=== PATIENT | male | born 1955 | race Caucasian/White ===

== ENCOUNTER 2024-02-12 19:27 | Inpatient (IN) | payer MEDICARE, SELFPAY ==
[2024-02-12] VITALS (13 sets, daily range): BP systolic 92–143; BP diastolic 60–97; BMI 33.9; BMI 33.3
--- NOTE | 2024-02-12 14:10 | ED.GENMED ---
ED Provider Triage
-
Patient seen by provider in Triage?: Seen in Triage
68-year-old male on Eliquis presents in referral from urgent care for evaluation of shortness of breath. He was found to be tachycardic and tachypneic with low oxygen readings at the urgent care. He looks pale in triage. He is tachycardic here.
Check labs including CBC CMP BNP, COVID and flu test. EKG pending. Order chest x-ray and type and screen
Patient seen by
History of Present Illness
General
Chief Complaint: Breathing Problem
Source: patient
Exam Limitations: none
Time Seen by Provider: 02/12/24 17:20
History of Present Illness
History of Present Illness:
68-year-old male history of coronary artery disease with stents [facility] presents with fatigue cough shortness of breath worsening over several days. He is here visiting from [place]. He is never been to this hospital before. He notes chest
tightness but denies any chest discomfort otherwise. No leg swelling. Denies any dark or tarry stools. No known sick contacts. No other complaints
Phy Exam
Physical Exam
Physical Exam:
General: Well-developed male with increased work of breathing
HEENT: Normocephalic atraumatic
Heart: Tachycardic but regular
Lungs: Diffusely wheezing no obvious rales
Abdomen soft nontender
Skin is pale but dry
Extremities: No cyanosis or edema
Scores
Heart Failure Risk
Heart Failure Risk Score: Not Applicable
Sepsis
Sepsis Screening
Sepsis Assessment: Sepsis
Sepsis Screen
Sepsis Screen: Sepsis
Date: 02/12/24
Time: 17:42
Course
Orders/Labs/Results
Orders:
Orders
02/12/24 14:08
CR Chest - 2 Views Urgent
Comment:
Reason For Exam: sob
02/12/24 14:11
Electrocardiogram (*1) Urgent
Reason for Study: Palpitations
EKG- Treatment ONCE
02/12/24 14:47
Type+Screen Urgent
COVID-19 Antigen Urgent
Source: Nasal Swab
Complete Blood Count/With Diff Urgent
Comprehensive Metabolic Panel Urgent
Manual Differential Urgent
NT-proBNP Urgent
Influenza A+B Rapid Molecular Urgent
SARAH Source: Nasal Swab
Specimen Description:
02/12/24 15:27
ABO2 Urgent
BBK Wristband Number:
Associate notified that ABO2 has been ordered: [id number]
Date: 02/12/24
Time: 14:58
Warehouse Delivery Driver ID: [id number]
02/12/24 17:27
Ipratropium/Albuterol Sulfate [Duoneb] 3 ml INH R NOW ONE
02/12/24 17:29
Dexamethasone Sod Phosphate [Decadron] 10 mg IV NOW STA
Abnormal Lab Results
02/12/24
14:47
WBC 3.6 L 10^3/uL
(4.8-10.8)
RBC 2.44 L 10^6/uL
(4.70-6.10)
Hgb 8.1 L g/dL
(13.0-18.0)
Hct 27.1 L %
(39.0-52.0)
MCV 111.1 H fL
(80.0-94.0)
MCH 33.2 H pg
(27.0-31.0)
MCHC 29.9 L g/dL
(33.0-37.0)
RDW 15.7 H %
(11.5-14.5)
MPV 12.0 H fL
(7.4-10.4)
Band Neutrophils 8 H %
(0-3)
Sodium 134 L mmol/L
(135-145)
BUN 22 H mg/dl
(9-20)
Creatinine 1.5 H mg/dL
(0.7-1.3)
Glucose 113 H mg/dl
(70-99)
Total Bilirubin 1.5 H mg/dl
(0.2-1.3)
02/12/24 14:47
02/12/24 14:47
Vital Signs
Initial and Last Documented VS:
Initial Vital Signs
Temp Pulse Resp BP Pulse Ox
98.0 F 139 24 135/95 94
02/12/24 14:07 02/12/24 14:07 02/12/24 14:07 02/12/24 14:07 02/12/24 14:07
Last Documented Vital Signs
Temp Pulse Resp BP Pulse Ox
98.0 F 131 27 124/69 96
02/12/24 14:07 02/12/24 16:30 02/12/24 16:30 02/12/24 16:00 02/12/24 16:30
MDM/Problems Addressed
Differential Diagnosis Includes:
Shortness of breath fatigue cough paleness. Consider anemia versus viral illness. Unlikely to be PE secondary to anticoagulated state. He is requiring 3 to 4 L of nasal oxygen. Ordered DuoNeb and Decadron
. Influenza test is positive. Patient's hemoglobin is 8.1. Blood consent signed. Discussed with emergency room attending. Will admit to hospital for influenza, bronchitis and anemia
*Critical Care Note
Total Time (30-74mins, 75-104mins- exclusive of procedures): Not Applicable
ED Attending Note
-
Portions of this chart may have been created with voice recognition software.� Occasional wrong word or��sound alike� substitutions may have occurred due to the inherent limitations of voice recognition software.
Discharge Plan
Departure
Patient Disposition: Admit
Date of Disposition: 02/12/24
Time of Disposition: 17:41
Presentation/result/management discussed w/ accepting MD/DO: Hospitalist
Discharge Problem:
Influenza A, Acute bronchitis, Anemia
Referrals:
UNKNOWN - PT DOES,NOT KNOW [Family Provider] -
Interventions
Interventions:
*Risk Screen - Suicide Last Done: 02/12/24 14:07
*General Assessment Last Done: 02/12/24 14:07
*Neglect/Abuse Screening Last Done: 02/12/24 17:21
ED- Fall Risk Assessment Last Done: 02/12/24 16:40
*ED COVID-19 Vaccine History Last Done: 02/12/24 14:07
ED- Cardiac Assessment Last Done: 02/12/24 16:40
ED- Pulmonary Assessment Last Done: 02/12/24 16:40
Discharge Date and Time
Print Language: LATVIAN
[2024-02-12 15:06] LABS: Hematocrit 27.1 % (39.0-52.0); Hemoglobin 8.1 g/dL (13.0-18.0); Mean Corp Hgb Conc. 29.9 g/dL (33.0-37.0); Mean Corpuscular Hgb 33.2 pg (27.0-31.0); Mean Corpuscular Volume 111.1 fL (80.0-94.0); Platelet Count 143 10^3/uL (130-400); Red Blood Cell Count 2.44 10^6/uL (4.70-6.10); Red Cell Dist. Width 15.7 % (11.5-14.5); White Blood Cell Count 3.6 10^3/uL (4.8-10.8)
[2024-02-12 15:10] LABS: ALT (SGPT) 11 U/L (0-50); AST (SGOT) 30 U/L (17-59); Albumin 4.1 g/dl (3.5-5.0); Alkaline Phosphatase 76 U/L (38-126); Blood Urea Nitrogen 22 mg/dl (9-20); Calcium 8.6 mg/dl (8.4-10.2); Carbon Dioxide 25 mmol/L (22-30); Chloride 99 mmol/L (98-107); Estimated Creatinine Clearance 68 ml/min; Glucose 113 mg/dl (70-99); Potassium 4.4 mmol/L (3.5-5.1); Sodium 134 mmol/L (135-145); Total Bilirubin 1.5 mg/dl (0.2-1.3); Total Protein 7.5 g/dl (6.3-8.2); eGFR 51.03
[2024-02-12 15:19] LABS: COVID-19 Antigen Negative (Negative); NT-proBNP 2830 pg/ml
[2024-02-12 15:33] LABS: Absolute Neutrophils -Man Diff 2.2 10^3/uL (1.4-6.5); Atypical Lymphocytes 4 %; Band Neutrophils 8 % (0-3); Eosinophils 1 % (0-6); Lymphocytes 23 % (20-51); Monocytes 8 % (2-9); Platelets Checked YES; Segmented Neutrophils 55 % (42-75)
[2024-02-12 15:34] LABS: Anisocytosis Slight; Hypochromasia Slight; Normal RBC Morphology No; Nucleated Red Blood Cells 1 (-)
[2024-02-12 15:35] LABS: Total Cells Counted 100
[2024-02-12] MEDS: DUONEB 3 ML INH (17:37)
[2024-02-12] MEDS: DECADRON 10 MG IV (17:37)
[2024-02-12] MEDS: VANCOCIN 530 MG IV (18:26)
[2024-02-12] MEDS: STERILE WATER FOR INJECTION 10 ML IV (18:27)
[2024-02-12] MEDS: CARDIZEM 125 IV (18:27)
[2024-02-12] MEDS: MAXIPIME 2000 MG IV (18:27)
--- NOTE | 2024-02-12 18:32 | HPS.HSE ---
Family Physician
-
Family Physician: NOT KNOW UNKNOWN - PT DOES
Chief Complaint
-
SOB
History of Present Illness
68yo M visiting from [place] with PMHx of HFrEF, Afib on Elqiuis, BPH, HTN, HLD, CAD s/p PCI, smoker came with 5 days of worsening malaise and SOB, found positive Influenza type A with significant wheezing in ED. [place] better after Duoneb. ALso
found with anemia and HONORIO, not previously known to the patient and Afib with RVR. XR with no pneumonia.
Medical History
Past Medical History
Past Medical History: Reports Other
Additional Past Medical History:
see HPI
Past Surgical History: Reports Other (See HPI)
Social History
Tobacco: Smoker
Alcohol: Chronic Alcoholic
Drug: None
Family History
Family History: Not pertinent
Allergies / Home Medications
Allergies reflects when Allergies were last updated in [email or web address].
Home Medications with original date entered in [email or web address]
Allergy/Medication List:
Allergies
Allergy/AdvReac Type Severity Reaction Status Date / Time
No Known Allergies Allergy Verified 02/12/24 14:13
Home Medications
apixaban 5 mg tablet (Eliquis) 5 mg PO BID 02/12/24
atorvastatin 80 mg tablet 80 mg PO DAILY 02/12/24
clopidogrel 75 mg tablet 75 mg PO DAILY 02/12/24
dapagliflozin propanediol 10 mg tablet (Farxiga) 10 mg PO DAILY 02/12/24
ezetimibe 10 mg tablet 10 mg PO DAILY 02/12/24
finasteride 5 mg tablet 5 mg PO DAILY 02/12/24
metoprolol succinate 50 mg tablet,extended release 24 hr 50 mg PO DAILY 02/12/24
pantoprazole 40 mg tablet,delayed release 40 mg PO DAILY 02/12/24
sacubitril 49 mg-valsartan 51 mg tablet (Entresto) 1 tab PO BID 12/26/24
spironolactone 25 mg tablet 25 mg PO DAILY 02/12/24
therapeutic multivitamin 1 tab PO DAILY 02/12/24
Review of Systems
-
History Source: Patient
A 12 point ROS was completed and negative except as noted: Yes
Respiratory: Reports Cough and Trouble Breathing
Physical Exam
Vital Signs
Vital Signs
Temp Pulse Resp BP Pulse Ox
98.0 F 131 27 124/69 96
02/12/24 14:07 02/12/24 16:30 02/12/24 16:30 02/12/24 16:00 02/12/24 16:30
Physical Exam
General: Respiratory Distress and Poor Appetite; No Fever or Chills
HEENT: NormoCephalic, Anicteric and Moist mucous membranes
Respiratory: Wheezes and Rales; No Crackles
Cardiac: S1/S2, Irregular Rhythm and Tachycardia
GI: Soft, Non Tender and Normal Bowel Sounds
Musculoskeletal: No Clubbing, No Cyanosis and No Edema
Skin: Warm; No Rash or Jaundice
Neuro: Awake, Alert, Oriented and AO x 3
Psych: Calm
Laboratory Results
-
02/12/24 14:47
Laboratory Results
Total Bilirubin 1.5 mg/dl (0.2-1.3) H 02/12/24 14:47
AST 30 U/L (17-59) 02/12/24 14:47
ALT 11 U/L (0-50) 02/12/24 14:47
Alkaline Phosphatase 76 U/L (38-126) 02/12/24 14:47
Data Reviewed
-
Diagnostic Radiology: Report Reviewed by me
Lab Data: Labs Reviewed by me
Impression/Plan
-
A/P:
#Acute hypoxic respiratory failure (tachypnea, dyspnea with hypoxia) 2/2 COPD exacerbation 2/2 Influenza A
Tamiflu
Taper steroids (cannot avoid with clinical COPD exacerbation)
bronchodilators
Wean off O2
Droplet precautions
Cannot exclude pneumonia- start Abx pending procalcitonin
#CAD, stable
#Afib with RVR
#Presumed HFrEF (no records)
Cardizem drip
follow Trop
Cardio consult
Telemetry
No signs of pulmonary congestion on XR, Lasix PRN
Echo
#Mild leukopenia
most likely 2/2 viral disease
follow CBC
#Macrocytic anemia
no overt signs of bleeding
Anemia
w/u
follow serial Hgb (consent signed)
check FOBT
#BPH
#Essential HTN
#HLD
cont home meds
watch for retention
#HONORIO vs CKD
patient does no know Cr baseline
follow BMP
#Mild bilirubinemia
no abd pain
check direct bili and LDH
#Nicotine dependency
#Alcohol abuse
last drink and smoke 5 days ago
COunseled on cessation
DVT ppx hep drip
Full code
I have spent at least 78min reviewing chart, test results, communication with consultants, family and direct patient care
[2024-02-12 18:50] LABS: Direct Bilirubin 0.4 mg/dl (0.0-0.4); LDH 212 U/L (120-246)
[2024-02-12 18:56] LABS: Hematocrit 24.8 % (39.0-52.0); Hemoglobin 7.6 g/dL (13.0-18.0)
[2024-02-12 19:53] LABS: Hepatitis C Antibody Reactive (Negative)
[2024-02-12 21:41] LABS: Hematocrit 26.9 % (39.0-52.0); Mean Corp Hgb Conc. 29.7 g/dL (33.0-37.0); Mean Corpuscular Hgb 33.8 pg (27.0-31.0); Mean Corpuscular Volume 113.5 fL (80.0-94.0); Mean Platelet Volume 11.7 fL (7.4-10.4); Platelet Count 141 10^3/uL (130-400); Red Blood Cell Count 2.37 10^6/uL (4.70-6.10); White Blood Cell Count 2.8 10^3/uL (4.8-10.8)
[2024-02-12] MEDS: TAMIFLU 75 MG PO (21:42)
[2024-02-12 21:52] LABS: APTT 41.4 Sec (23.4-35.0)
[2024-02-12] MEDS: HEPARIN 25000 UNITS/250 ML IV (22:33)
[2024-02-12] MEDS: ENTRESTO 49 MG/51 MG PO (22:38)
--- NOTE | 2024-02-12 22:50 | PTCARENOTE ---
Addendum entered by Lydia Licea RN 02/13/24 05:17:
Pt morning labs resulting critical for WBC, night INDEPENDENT DRIVER made rosa.
Original Note:
Received Pt from ED. Pt on Cardizem gtt @ 15ml/HR, HR 120's. Pt appears to be tolerating gtt well, BPs stable at this time. PTT obtained and heparin gtt started @1000U/HR per order. Pt has no active signs of bleeding at this time. Pt had no
complaints of pain at this time. Call torres within reach. Assessment vitals and care as documented.
[2024-02-12 23:05] LABS: TSH Reflex To Free T4 0.19 uIU/ml (0.47-4.68)
[2024-02-12 23:54] LABS: Free T4 1.67 ng/dl (0.78-2.19)
[2024-02-13] VITALS (11 sets, daily range): BP systolic 95–132; BP diastolic 67–82; BMI 33.0
[2024-02-13] MEDS: SOLU-MEDROL PF 40 MG IV ×3 (02:53→22:07)
[2024-02-13] MEDS: MAXIPIME 2000 MG IV (02:54)
[2024-02-13] MEDS: STERILE WATER FOR INJECTION 10 ML IV (02:54)
[2024-02-13 03:49] LABS: Hematocrit 25.2 % (39.0-52.0); Hemoglobin 7.6 g/dL (13.0-18.0); Mean Corp Hgb Conc. 30.2 g/dL (33.0-37.0); Mean Corpuscular Hgb 33.8 pg (27.0-31.0); Platelet Count 131 10^3/uL (130-400); Red Blood Cell Count 2.25 10^6/uL (4.70-6.10); Red Cell Dist. Width 15.6 % (11.5-14.5); White Blood Cell Count 1.5 10^3/uL (4.8-10.8)
[2024-02-13 03:57] LABS: ALT (SGPT) 13 U/L (0-50); AST (SGOT) 33 U/L (17-59); Albumin 3.8 g/dl (3.5-5.0); Alkaline Phosphatase 62 U/L (38-126); Blood Urea Nitrogen 24 mg/dl (9-20); Calcium 8.5 mg/dl (8.4-10.2); Carbon Dioxide 27 mmol/L (22-30); Chloride 102 mmol/L (98-107); Estimated Creatinine Clearance 71 ml/min; Glucose 182 mg/dl (70-99); HDL Cholesterol 30 mg/dl; Iron 45 ug/dl (49-181); LDH 223 U/L (120-246); LDL Cholesterol, Calculated 54 mg/dl; Potassium 4.8 mmol/L (3.5-5.1); Sodium 136 mmol/L (135-145); Total Bilirubin 1.2 mg/dl (0.2-1.3); Total Cholesterol 94 mg/dl (50-199); Total Protein 7.1 g/dl (6.3-8.2); Triglyceride 50 mg/dl (10-149); Very Low Density Lipoprotein 10 mg/dl (0-30); eGFR 55.09
[2024-02-13 04:06] LABS: Percent Saturation 15 % (20-50); Procalcitonin < 0.05 ng/ml (0.0-0.25); Total Iron Binding Capacity 284 ug/dl (261-462)
[2024-02-13 04:09] LABS: Troponin I 0.014 ng/ml
[2024-02-13 05:03] LABS: Folate > 20.0 ng/ml (2.76-20); Vitamin B12 355 pg/ml (239-931)
--- NOTE | 2024-02-13 05:54 | PTCARENOTE ---
Pt HR maintaining in the high 60's to 80 on Cardizem gtt at 5mg/hr. Night ENVIRONMENT ARTIST made aware, will maintain Pt on 5mg/hr at this time. Pt remains in [facility].
[2024-02-13 06:56] LABS: Reticulocyte Count 2.9 % (0.4-2.8)
[2024-02-13 07:43] LABS: % Lymphocytes 21.2 % (20.5-51.1); % Monocytes 2.1 % (1.7-9.3); % Neutrophils 76.7 % (42.2-75.2); Absolute Lymphocytes 0.3 10^3/uL (1.2-3.4); Absolute Neutrophils 1.1 10^3/uL (1.4-6.5); Nucleated Red Blood Cells % 2.1 % (-)
[2024-02-13] MEDS: DUONEB 3 ML INH ×4 (08:18→20:07)
--- NOTE | 2024-02-13 08:42 | W.PN.HOSP.TC ---
Today's Communication/Plan
-
increase BB - wean off Cardizem
Echo
Wean off O2
decrease steroids
Lasix one dose today
heparin drip cont for 24h more and then if Hgb stable - switch to Eliquis
check fecal occult blood
Assessment / Plan
Assessment / Plan
68yo M visiting from [place] with PMHx of HFrEF, Afib on Elqiuis, BPH, HTN, HLD, CAD s/p PCI, smoker came with 5 days of worsening malaise and SOB, found positive Influenza type A with significant wheezing in ED. [place] better after Duoneb. ALso
found with anemia and HONORIO, not previously known to the patient and Afib with RVR. XR with no pneumonia. Procalcitonin neg - no concern for bacterial component.
A/P:
#Acute hypoxic respiratory failure (tachypnea, dyspnea with hypoxia) 2/2 COPD exacerbation 2/2 Influenza A
Tamiflu
Taper steroids (cannot avoid with clinical COPD exacerbation)
bronchodilators
Wean off O2
Droplet precautions
#CAD, stable
#Afib with RVR
#Acute on chronic Presumed HFrEF (no records)
Cardizem drip wean off with increased BB
Trop WNL
Cardio consult
Telemetry
No signs of pulmonary congestion on XR, Lasix PRN
Echo
#leukopenia
most likely 2/2 viral disease
follow CBC
#Macrocytic anemia with PALLAVI
no overt signs of bleeding
combined PALLAVI and alcohol BM supression
follow serial Hgb (consent signed)
check FOBT
Outpatient EGD/colonoscopy
stop alcohol
#BPH
#Essential HTN
#HLD
cont home meds
watch for retention
#HONORIO vs CKD
patient does no know Cr baseline
follow BMP
#Subclinical hypoerthyroidism
repeat TSH in 2-4 weeks with PCP
#Strang
#Nicotine dependency
#Alcohol abuse
last drink and smoke 5 days ago
COunseled on cessation
#HUGH
with nocturnal hypoxia
previously recommended for CPAP after sleep study - he did not use it. Advised to repeat and use CPAP
DVT ppx hep drip
Full code
I have spent at least 58min reviewing chart, test results, communication with consultants, family and direct patient care
Anticipated Discharge: 24 - 48 hours
Subjective/Interval History
-
Date of Service: February 13, 2024
Objective Data
-
Labs:
Laboratory Results
02/12/24 02/13/24 02/13/24
21:34 03:10 03:10
WBC 2.8 L 1.5 L*
Hgb 8.0 L 7.6 L Cancelled
Hct 26.9 L 25.2 L
Plt Count 141
APTT 41.4 H
Sodium
Potassium
Chloride
Carbon Dioxide
BUN
Creatinine
Glucose
Calcium
Total Bilirubin
AST
ALT
Alkaline Phosphatase
02/13/24 02/13/24 02/13/24
03:10 03:18 10:30
WBC
Hgb
Hct Cancelled
Plt Count 131
APTT 54.0 H Pending
Sodium 136
Potassium 4.8
Chloride 102
Carbon Dioxide 27
BUN 24 H
Creatinine 1.4 H
Glucose 182 H
Calcium 8.5
Total Bilirubin 1.2
AST 33
ALT 13
Alkaline Phosphatase 62
02/13/24
10:45
WBC
Hgb Cancelled
Hct Cancelled
Plt Count
APTT
Sodium
Potassium
Chloride
Carbon Dioxide
BUN
Creatinine
Glucose
Calcium
Total Bilirubin
AST
ALT
Alkaline Phosphatase
Vital Signs:
Vital Signs
Temp Pulse Resp BP Pulse Ox
97.5 F 94 17 132/70 96
02/13/24 07:32 02/13/24 08:22 02/13/24 06:00 02/13/24 06:00 02/13/24 08:22
I&O
02/12/24 02/13/24 02/14/24
06:59 06:59 06:59
Intake Total 350 / 350
Output Total 600 / 600
Balance -250 / -250
Review of Systems
-
History Source: Patient
All other systems: Reviewed and negative
Physical Exam
-
General: No Apparent Distress
HEENT: Normocephalic
Respiratory: Crackles; Negative Wheezes
Cardiac: Irregular Rhythm
GI: Soft
Genito-urinary: No Costovertebral Tender
Musculoskeletal: No Clubbing, No Cyanosis, Edema, Right Lower Extrem and Edema, Left Lower Extrem
Skin: Warm
Neuro: Awake, Alert, Oriented and AO x 3
Psych: Calm
[2024-02-13] MEDS: PLAVIX 75 MG PO (09:33)
[2024-02-13] MEDS: FARXIGA 10 MG PO (09:34)
[2024-02-13] MEDS: LASIX 40 MG IV (09:34)
[2024-02-13] MEDS: THERAGRAN 1 TABLET PO (09:34)
[2024-02-13] MEDS: LIPITOR 80 MG PO (09:34)
[2024-02-13] MEDS: ZETIA 10 MG PO (09:35)
[2024-02-13] MEDS: PROTONIX 40 MG PO (09:35)
[2024-02-13] MEDS: TAMIFLU 75 MG PO ×2 (09:35→19:58)
[2024-02-13] MEDS: VIBRAMYCIN 100 MG PO ×2 (09:35→20:00)
[2024-02-13] MEDS: ENTRESTO 49 MG/51 MG 1 TAB PO ×2 (09:35→19:59)
[2024-02-13] MEDS: ALDACTONE 25 MG PO (09:36)
[2024-02-13] MEDS: PROSCAR 5 MG PO (09:36)
[2024-02-13] MEDS: TOPROL XL 75 MG PO (09:43)
--- NOTE | 2024-02-13 10:04 | CON.CAR ---
Addendum entered and electronically signed by Bhavesh Sutton MD 02/13/24 12:03:
I saw and examined the patient.
The DATA MANAGEMENT ENGINEER's note was reviewed and I agree with the note.
Comment: 69 year old male from [place] with heart failure (type unknown), coronary artery disease (prior PCI's), paroxysmal atrial fibrillation (on apixaban), hypertension, dyslipidemia, and current tobacco abuse who presented to the emergency
department the chief complaint of shortness of breath, and found to have influenza. We are consulted for AF RVR.
His AF is much better controlled and dilt gtt is off. Hopeful, that tomorrow he can be d/c if HRs continue to be well controlled.
Original Note:
Consultation
Consultation Request
Date/Time Consultation Requested: 02/12/2024 20:30
Date/Time Consultation Performed: 02/13/2024 09:00
Requesting Provider: Dr. Llanes
Performing Provider: SALVADOR Pineda for Dr. Sutton
Reason for Consultation: Atrial fibrillation with rapid ventricular response
Medical History
-
Chief Complaint: Shortness o fbreath
History of Present Illness:
Julito Moody is a 69 year old male from [place] with heart failure (type unknown), coronary artery disease (prior PCI's), paroxysmal atrial fibrillation (on apixaban), hypertension, dyslipidemia, and current tobacco abuse who presented to the
emergency department the chief complaint of shortness of breath. He is visiting from [place] for the holiday when he presented for evaluation of shortness of breath. He was found to have tachycardia, tachypnea, and low SpO2 at urgent care and was
referred to the emergency department. He was found to be positive for influenza A. Cardiology was consulted for atrial fibrillation with rapid ventricular response. He denies chest pain and shortness of breath. He does not know the name of his
order dispatcher in [place].
Past Medical History
Past Medical History: Arrhythmias (Paroxysmal atrial fibrillation), CAD (prior PCI), CHF (type unknown), HTN and Hypercholesterolemia
Social History
Tobacco: Smoker
Alcohol: Other (six pack five days week)
Drug: None
Personal:
Living: With Family
Family History
Family History: Reviewed & Not Pertinent
Allergies / Home Medications
Allergy/AdvReac Type Severity Reaction Status Date / Time
No Known Allergies Allergy Verified 02/12/24 14:13
�Medication �Instructions �Recorded �Confirmed �Type
apixaban 5 mg tablet (Eliquis) 5 mg PO BID Blood Clot 02/12/24 02/12/24 History
Prevention/Tx
atorvastatin 80 mg tablet 80 mg PO DAILY High Cholesterol 02/12/24 02/12/24 History
clopidogrel 75 mg tablet 75 mg PO DAILY Blood Clot 02/12/24 02/12/24 History
Prevention/Tx
dapagliflozin propanediol 10 mg 10 mg PO DAILY Diabetes 02/12/24 02/12/24 History
tablet (Farxiga)
ezetimibe 10 mg tablet 10 mg PO DAILY High Cholesterol 02/12/24 02/12/24 History
finasteride 5 mg tablet 5 mg PO DAILY BPH 02/12/24 02/12/24 History
metoprolol succinate 50 mg 50 mg PO DAILY Blood Pressure 02/12/24 02/12/24 History
tablet,extended release 24 hr
pantoprazole 40 mg tablet,delayed 40 mg PO DAILY GERD 02/12/24 02/12/24 History
release
sacubitril 49 mg-valsartan 51 mg 1 tab PO BID Heart Failure 02/12/24 02/12/24 History
tablet (Entresto)
spironolactone 25 mg tablet 25 mg PO DAILY Fluid 02/12/24 02/12/24 History
Retention/Swelling
therapeutic multivitamin 1 tab PO DAILY Supplement 02/12/24 02/12/24 History
Review of Systems
-
History Source: Patient
All other systems: Negative unless noted
Constitutional: Fatigue
EENT: Sore Throat
Respiratory: Cough and Trouble Breathing
Cardiac: No Symptoms
Abdomen/GI: No Symptoms
: No Symptoms
Musculoskeletal: No Symptoms
Skin: No Symptoms
Neurological: No Symptoms
Endocrine: No Symptoms
Hematologic/Lymphatic: No Symptoms
Physical Exam
Vital Signs
Temp Pulse Resp BP Pulse Ox
97.5 F 72 17 117/77 96
02/13/24 07:32 02/13/24 09:43 02/13/24 06:00 02/13/24 09:43 02/13/24 08:22
Lab Results
02/13/24 10:45
02/13/24 03:10
Troponin I Cancelled 02/13/24 10:15
Cps-N-Vtjzcrraipl Pept 2830 pg/ml 02/12/24 14:47
Physical Exam
General: Well Developed, Well Nourished, No Apparent Distress and Comfortable
HEENT: Normocephalic, Anicteric and Moist Mucous Membranes
Respiratory: Crackles and Non Labored Respirations
Cardiac: S1/S2 and Irregular Rhythm; Negative Peripheral Edema
Breast: Deferred by me
GI: Soft, Non Tender, Non Distended and Normal Bowel Sounds
Rectal: Deferred by Provider
Genito-urinary: No Costovertebral Tender
Musculoskeletal: No Clubbing, No Cyanosis and No Edema
Skin: Warm and Dry
Neuro: AO x 3
Hematologic/Lymphatic: No Lymphadenopathy
Psych: Calm
Impression / Plan
-
IMPRESSION/PLAN: 69M with heart failure (type unknown), coronary artery disease (prior PCI's), paroxysmal atrial fibrillation (on apixaban), hypertension, dyslipidemia, and current tobacco abuse who presented to the emergency department the chief
complaint of shortness of breath -> AF with RVR and influenza A
Acute hypoxic respiratory failure, in the setting of COPD and influenza A
Atrial fibrillation with RVR
-Rates improving, metoprolol succinate increased from 50 mg to 75 mg daily by primary service
-Anticipate discontinuation of diltiazem drip
-Oral Anticoagulation: Apixaban 5 mg twice daily on hold per primary, on heparin
-[id number]: score at least 4 (Heart failure, HTN, Vascular disease, age 65-74)
Heart failure, presumed HFrEF, chronic
-He is lying flat in the bed and is not tachypneic
-No edema
-GDMT as tolerated
-KHANH/ARB/ARNI: Sacubitril/valsartan
-Beta-kitty: Metoprolol succinate
-SGLT2: Farxiga
-MRA: Spironolactone
-Device: None present on CXR
-Trend daily weight, I/O, low sodium diet
Coronary artery disease
-Stable without chest pain
-He reports prior stenting, date and location unknown, on clopidogrel
Dyslipidemia, on atorvastatin and Zetia
HUGH, declined CPAP in the outpatient setting
Current smoker, cessation recommended
Data Reviewed
-
EKG: Report Reviewed by me
Radiology: Report Reviewed by me
Labs: Labs Reviewed by me
--- NOTE | 2024-02-13 10:39 | PN.CDI ---
Addendum entered and electronically signed by Jaylan More MD 02/15/24 12:04:
Agree with viral sepsis on admission
Original Note:
CDI
- -
CDI:
Physician Documentation Request
Admit Date: 02/12/24 19:27
Dear Doctor Argenis,
Clinical Indicators:
Patient admitted with Influenza A and COPD exacerbation with acute hypoxic respiratory failure
WBC on admission:
02/12/24
14:47
WBC 3.6 L
HR/RR trend on admission:
02/12/24
14:07 02/12/24
15:00 02/12/24
16:00
Pulse 139 138 137
Resp Rate 24 24 21
02/12/24
17:00 02/12/24
18:00 02/12/24
19:00
Pulse 140 139 136
Resp Rate 24
Please clarify which of the following most accurately describes the status of the patient's infection:
Sepsis, POA
- Systemic manifestations of infection, with 2 or more SIRS criteria which include:
- Fever >100.4 degrees F or hypothermia < 96.8 degrees F
- Leukocytosis - WBC > 12,000 or leukopenia - WBC < 4,000 or > 10% bands
- Tachycardia > 90 beats per minute
- Tachypnea - RR > 20 breaths per minute or PaCO2 , 32mmHg
Source: Merck Manual 2013
Severe Sepsis with associated acute hypoxic respiratory failure, POA
Influenza A Infection Only, Without Systemic Illness
Other
Use of terms such as suspected, likely, concern for, or probable (associated with a specific diagnosis that is being evaluated, monitored, or treated as if it exists) are acceptable and can be coded in the inpatient setting, when documented at the
time of discharge.
Thank you,
Afshan Eduardo RN BSN
CDI Specialist
available via tiger text
Please use your independent medical judgment in providing your response.
[2024-02-13 11:28] LABS: Glycohemoglobin (HgbA1c) 4.5 % (4.0-5.6)
[2024-02-13 11:32] LABS: APTT 54.2 Sec (23.4-35.0)
--- NOTE | 2024-02-13 12:33 | CM ---
Patient seen bedside.
Admitted with COPD/Flu
Daughter in law room with patient.
Patient lives with spouse in a 2 story home with 5 steps in then 7 steps to first level.
Patient independent prior to admission without assistive devices.
Patient drives.
Patient is not on home oxygen, does not have a nebulizer, agreeable for script if nebulizer is needed.
Patient is in visiting from [place], staying with family.
Patient currently does not have a PCP but will be getting one when he returns to [place].
Pharmacy: [facility]
Plan: home with family then back to [place] once medically stable.
--- NOTE | 2024-02-13 15:20 | PTCARENOTE ---
Rec'd pt this AM. vital signs stable. cardizem drip d.c. heparin drip infusing. no BM today.
[2024-02-13] MEDS: ELIQUIS 5 MG PO (17:30)
--- NOTE | 2024-02-13 17:32 | PTCARENOTE ---
Pt's daughter in law called. Pt's and son have flu and are very sick. Pt agrees that daughter in law can be point of contact. her name is Rositalola Waddellmiriam [phone]
--- NOTE | 2024-02-13 21:11 | PTCARENOTE ---
This RN, spoke to Rosita, daughter in law. This RN updated family member to the best of her ability. Family member informed that no new updates to plan of care of been added since family member was here during the day. Advised to speak to MD for
further questions, r/t being outside this RNs scope.
--- NOTE | 2024-02-13 21:40 | PTCARENOTE ---
Pt received from previous RN. Pt AAOx3. pt sitting up in bed watching TV. pt provided with supplies to brush teeth. Received pt off of heparin gtt. HR 95-105 while resting. No BM thus far during this RN's shift. Pt informed to notify RN before
having BM. Pt expressed understanding. Voiding via urinal. Assessment as documented. Call light in reach.
[2024-02-14] VITALS (17 sets, daily range): BP systolic 82–118; BP diastolic 53–96; BMI 32.7
[2024-02-14 04:42] LABS: Hematocrit 21.1 % (39.0-52.0); Hemoglobin 6.6 g/dL (13.0-18.0); Mean Corp Hgb Conc. 31.3 g/dL (33.0-37.0); Mean Corpuscular Hgb 33.5 pg (27.0-31.0); Mean Corpuscular Volume 107.1 fL (80.0-94.0); Mean Platelet Volume 13.2 fL (7.4-10.4); Platelet Count 131 10^3/uL (130-400); Red Blood Cell Count 1.97 10^6/uL (4.70-6.10); Red Cell Dist. Width 15.3 % (11.5-14.5); White Blood Cell Count 3.2 10^3/uL (4.8-10.8)
[2024-02-14 04:53] LABS: ALT (SGPT) 15 U/L (0-50); AST (SGOT) 35 U/L (17-59); Albumin 3.5 g/dl (3.5-5.0); Alkaline Phosphatase 55 U/L (38-126); Blood Urea Nitrogen 35 mg/dl (9-20); Calcium 8.4 mg/dl (8.4-10.2); Carbon Dioxide 23 mmol/L (22-30); Chloride 102 mmol/L (98-107); Estimated Creatinine Clearance 83 ml/min; Glucose 160 mg/dl (70-99); Potassium 4.7 mmol/L (3.5-5.1); Sodium 136 mmol/L (135-145); Total Bilirubin 0.4 mg/dl (0.2-1.3); Total Protein 6.6 g/dl (6.3-8.2); eGFR > 60.00
--- NOTE | 2024-02-14 05:13 | PTCARENOTE ---
Addendum entered by Sienna Evangelista RN 02/14/24 05:21:
recheck pending results.
Original Note:
Am hgb 6.6. PRE SALES NETWORK ENGINEER notified of critical result. order received for recheck. Consent present in chart. type and screen drawn 02/12/24.
[2024-02-14 05:25] LABS: Hematocrit 24.1 % (39.0-52.0); Hemoglobin 7.2 g/dL (13.0-18.0); Mean Corp Hgb Conc. 29.9 g/dL (33.0-37.0); Mean Corpuscular Hgb 32.9 pg (27.0-31.0); Mean Platelet Volume 12.6 fL (7.4-10.4); Platelet Count 137 10^3/uL (130-400); Red Blood Cell Count 2.19 10^6/uL (4.70-6.10); Red Cell Dist. Width 15.7 % (11.5-14.5); White Blood Cell Count 3.4 10^3/uL (4.8-10.8)
[2024-02-14] MEDS: DUONEB 3 ML INH (07:29)
[2024-02-14] MEDS: ENTRESTO 49 MG/51 MG 1 TAB PO ×2 (08:16→19:56)
[2024-02-14] MEDS: ZETIA 10 MG PO (08:16)
[2024-02-14] MEDS: PROTONIX 40 MG PO (08:16)
[2024-02-14] MEDS: PLAVIX 75 MG PO (08:16)
[2024-02-14] MEDS: VIBRAMYCIN 100 MG PO ×2 (08:16→19:57)
[2024-02-14] MEDS: TOPROL XL 75 MG PO (08:17)
[2024-02-14] MEDS: PROSCAR 5 MG PO (08:17)
[2024-02-14] MEDS: TAMIFLU 75 MG PO ×2 (08:17→19:57)
[2024-02-14] MEDS: FARXIGA 10 MG PO (08:17)
[2024-02-14] MEDS: LIPITOR 80 MG PO (08:17)
[2024-02-14] MEDS: ALDACTONE 25 MG PO (08:17)
[2024-02-14] MEDS: THERAGRAN 1 TABLET PO (08:18)
[2024-02-14 08:32] LABS: % Immature Granulocytes 0.6 % (0-0.5); % Lymphocytes 12.9 % (20.5-51.1); % Monocytes 2.2 % (1.7-9.3); % Neutrophils 84.3 % (42.2-75.2); Absolute Lymphocytes 0.4 10^3/uL (1.2-3.4); Absolute Monocytes 0.1 10^3/uL (0.1-0.6); Absolute Neutrophils 2.7 10^3/uL (1.4-6.5); Nucleated Red Blood Cells % 2.2 % (-)
--- NOTE | 2024-02-14 09:02 | W.PN.HOSP.TC ---
Today's Communication/Plan
-
transfuse blood, folllow H&H GI consult
switch to Prednisolone as breathing improved
Assessment / Plan
Assessment / Plan
68yo M visiting from [place] with PMHx of HFrEF, Afib on Elqiuis, BPH, HTN, HLD, CAD s/p PCI, smoker came with 5 days of worsening malaise and SOB, found positive Influenza type A with significant wheezing in ED. [place] better after Duoneb. ALso
found with anemia and HONORIO, not previously known to the patient and Afib with RVR. XR with no pneumonia. Procalcitonin neg - no concern for bacterial component. Developed worsening PALLAVI - GI for assessment for scoping
A/P:
#Acute hypoxic respiratory failure (tachypnea, dyspnea with hypoxia) 2/2 COPD exacerbation 2/2 Influenza A
Tamiflu
Taper steroids (cannot avoid with clinical COPD exacerbation)
bronchodilators
Wean off O2
Droplet precautions
#CAD, stable
#Afib with RVR
#Acute on chronic Presumed HFrEF (no records)
Cardizem drip wean off with increased BB
Trop WNL
Cardio consult
Telemetry
No signs of pulmonary congestion on XR, Lasix PRN
Echo
#leukopenia
most likely 2/2 viral disease
follow CBC
#Macrocytic anemia with PALLAVI
PPI
no overt signs of bleeding
combined PALLAVI and alcohol BM supression
follow serial Hgb (consent signed)
check FOBT
Gastroenterology consult
stop alcohol
Iron upon d/c
#BPH
#Essential HTN
#HLD
cont home meds
watch for retention
#HONORIO vs CKD
patient does no know Cr baseline
follow BMP
#Subclinical hyperthyroidism
repeat TSH in 2-4 weeks with PCP
#[place]
#Nicotine dependency
#Alcohol abuse
last drink and smoke 5 days ago
COunseled on cessation
#HUGH
with nocturnal hypoxia
previously recommended for CPAP after sleep study - he did not use it. Advised to repeat and use CPAP
DVT ppx hep drip
Full code
I have spent at least 58min reviewing chart, test results, communication with consultants, family and direct patient care
Anticipated Discharge: 24 - 48 hours
Subjective/Interval History
-
Date of Service: February 14, 2024
Objective Data
-
Labs:
Laboratory Results
02/13/24 02/14/24 02/14/24
18:00 04:14 05:17
WBC 3.2 L 3.4 L
Hgb 6.6 L* 7.2 L
Hct 21.1 L 24.1 L
Plt Count 131 137
APTT Cancelled
Sodium 136
Potassium 4.7
Chloride 102
Carbon Dioxide 23
BUN 35 H
Creatinine 1.2
Glucose 160 H
Calcium 8.4
Total Bilirubin 0.4
AST 35
ALT 15
Alkaline Phosphatase 55
02/14/24
12:00
WBC
Hgb Pending
Hct Pending
Plt Count
APTT
Sodium
Potassium
Chloride
Carbon Dioxide
BUN
Creatinine
Glucose
Calcium
Total Bilirubin
AST
ALT
Alkaline Phosphatase
Vital Signs:
Vital Signs
Temp Pulse Resp BP Pulse Ox
98.3 F 83 20 112/65 96
02/14/24 08:20 02/14/24 08:20 02/14/24 08:20 02/14/24 08:20 02/14/24 07:43
I&O
02/13/24 02/14/24 02/15/24
06:59 06:59 06:59
Intake Total 350 / 350
Output Total 600 / 600 2174 / 2174
Balance -250 / -250 -2174 / -2174
Review of Systems
-
History Source: Patient
All other systems: Reviewed and negative
Physical Exam
-
General: No Apparent Distress
HEENT: Normocephalic
Respiratory: Wheezes (minimal R sided)
GI: Soft, Nontender and Nondistended
Musculoskeletal: No Clubbing, No Cyanosis and No Edema
Neuro: Awake, Alert, Oriented and AO x 3
Psych: Calm
--- NOTE | 2024-02-14 09:19 | W.PN.CD ---
Today's Communication / Plan
-
Cont metoprolol
Agree with holding Eliquis given worsening anemia, resume once OK from bleeding perspective
Impression / Plan
-
IMPRESSION/PLAN: 69M with heart failure (type unknown), coronary artery disease (prior PCI's), paroxysmal atrial fibrillation (on apixaban), hypertension, dyslipidemia, and current tobacco abuse who presented to the emergency department the chief
complaint of shortness of breath -> AF with RVR and influenza A
Acute hypoxic respiratory failure, in the setting of COPD and influenza A
Atrial fibrillation with RVR
-cont metop 75 mg daily
-Anticipate discontinuation of diltiazem drip
-Oral Anticoagulation: Apixaban 5 mg twice daily on hold per primary resume once OK from bleeding perspective
-[id number]: score at least 4 (Heart failure, HTN, Vascular disease, age 65-74)
Heart failure, presumed HFrEF, chronic
-He is lying flat in the bed and is not tachypneic
-No edema
-GDMT as tolerated
-KHANH/ARB/ARNI: Sacubitril/valsartan
-Beta-kitty: Metoprolol succinate
-SGLT2: Farxiga
-MRA: Spironolactone
-Device: None present on CXR
-Trend daily weight, I/O, low sodium diet
New anemia
- agree with hold Eliquis
- per primary, resume once OK from bleeding perspective
Coronary artery disease
-Stable without chest pain
-He reports prior stenting, date and location unknown, on clopidogrel
Dyslipidemia, on atorvastatin and Zetia
HUGH, declined CPAP in the outpatient setting
Current smoker, cessation recommended
Physical Exam
Vital Signs/Labs
Vital Signs
Temp Pulse Resp BP Pulse Ox
98.3 F 83 20 112/65 96
02/14/24 08:20 02/14/24 08:20 02/14/24 08:20 02/14/24 08:20 02/14/24 07:43
02/13/24 02/14/24 02/15/24
06:59 06:59 06:59
Actual Weight 263 lb 10.766 oz 261 lb 9.6 oz
02/14/24 04:14
APTT Cancelled 02/13/24 18:00
Triglycerides 50 mg/dl (10-149) 02/13/24 03:10
LDL Cholesterol, Calc 54 mg/dl 02/13/24 03:10
VLDL Cholesterol, Calc 10 mg/dl (0-30) 02/13/24 03:10
HDL Cholesterol 30 mg/dl 02/13/24 03:10
Free T4 1.67 ng/dl (0.78-2.19) 02/12/24 21:34
02/12/24
14:47
Eed-K-Usjrlebjogm Pept 2830
LAB Results
02/12/24 02/13/24 02/13/24
18:43 03:10 10:15
Troponin I 0.020 0.014 Cancelled
Physical Exam
Constitutional: No acute distress and Comfortable
EENT: Anicteric
Cardiovascular: Rhythm/rate is irregular
Respiratory: Respiratory effort normal and Lungs clear to auscul.
GI: Soft
Neuro/Psych: AO x 3
Data Reviewed
-
Date of Service: February 14, 2024
EKG: Tracing Personally Visualized and interpreted (af)
Echo: Report Reviewed by me
Labs: Labs Reviewed by me
[2024-02-14] MEDS: DUONEB INH (12:13)
[2024-02-14] MEDS: DELTASONE 40 MG PO (12:24)
--- NOTE | 2024-02-14 13:31 | PTCARENOTE ---
Received 1 unit PRBC this am without difficulty. Pt ambulated to bathroom now in recliner chair. BP 99/67 AFlutter on tele rates 70s-100. Family visiting - infection prevention discussed with pt and daughter in law.
[2024-02-14 16:21] LABS: Hematocrit 28.3 % (39.0-52.0); Hemoglobin 8.6 g/dL (13.0-18.0)
--- NOTE | 2024-02-14 17:10 | CON.GI ---
Consultation
-
Date/Time Consultation Requested: 02/14/2024
Date/Time Consultation Performed: 02/14/2024
Requesting Provider: Hospitalist
Performing Provider: David CHRISTIANSON
Reason for Consultation: anemia
Medical History
Chief Complaint / HPI
Chief Complaint: Shortness of breath
History of Present Illness:
68-year-old male from [place] with history of A-fib on Eliquis, hypertension, coronary artery disease status post PCI ,dyslipidemia admitted with generalized malaise and shortness of breath. Found to have positive influenza type A in ED. Also ED
labs showing Hb of 6.6. Patient denies any dark stool or hematochezia or hematemesis. No prior EGD or colonoscopy.
Past Medical History
Past Medical History: Other (A-fib, BPH, hypertension, dyslipidemia, coronary artery disease, heart failure)
Social History
Tobacco: Smoker
Alcohol: Chronic Alcoholic
Drug: None
Allergies / Home Medications
Allergy/AdvReac Type Severity Reaction Status Date / Time
No Known Allergies Allergy Verified 02/12/24 14:13
�Medication �Instructions �Recorded
apixaban 5 mg tablet (Eliquis) 5 mg PO BID Blood Clot 02/12/24
Prevention/Tx
atorvastatin 80 mg tablet 80 mg PO DAILY High Cholesterol 02/12/24
clopidogrel 75 mg tablet 75 mg PO DAILY Blood Clot 02/12/24
Prevention/Tx
dapagliflozin propanediol 10 mg 10 mg PO DAILY Diabetes 02/12/24
tablet (Farxiga)
ezetimibe 10 mg tablet 10 mg PO DAILY High Cholesterol 02/12/24
finasteride 5 mg tablet 5 mg PO DAILY BPH 02/12/24
metoprolol succinate 50 mg 50 mg PO DAILY Blood Pressure 02/12/24
tablet,extended release 24 hr
pantoprazole 40 mg tablet,delayed 40 mg PO DAILY GERD 02/12/24
release
sacubitril 49 mg-valsartan 51 mg 1 tab PO BID Heart Failure 02/12/24
tablet (Entresto)
spironolactone 25 mg tablet 25 mg PO DAILY Fluid 02/12/24
Retention/Swelling
therapeutic multivitamin 1 tab PO DAILY Supplement 02/12/24
Review of Systems
Vital Signs
Temp Pulse Resp BP Pulse Ox
98.3 F 79 24 94/56 95
02/14/24 08:20 02/14/24 14:00 02/14/24 14:00 02/14/24 14:00 02/14/24 11:00
Physical Exam
Exam
General: No Apparent Distress
Respiratory: Clear
Cardiac: S1/S2
GI: Non Tender, Non Distended and Normal Bowel Sounds
Neuro: AO x 3
Results
WBC 3.4 10^3/uL (4.8-10.8) L 02/14/24 05:17
Hgb 8.6 g/dL (13.0-18.0) L 02/14/24 16:01
Hct 28.3 % (39.0-52.0) L 02/14/24 16:01
MCV 110.0 fL (80.0-94.0) H 02/14/24 05:17
Plt Count 137 10^3/uL (130-400) 02/14/24 05:17
Absolute Neuts (auto) 2.7 10^3/uL (1.4-6.5) 02/14/24 04:14
APTT Cancelled 02/13/24 18:00
Sodium 136 mmol/L (135-145) 02/14/24 04:14
Potassium 4.7 mmol/L (3.5-5.1) 02/14/24 04:14
Chloride 102 mmol/L (98-107) 02/14/24 04:14
Carbon Dioxide 23 mmol/L (22-30) 02/14/24 04:14
BUN 35 mg/dl (9-20) H 02/14/24 04:14
Creatinine 1.2 mg/dL (0.7-1.3) 02/14/24 04:14
Calcium 8.4 mg/dl (8.4-10.2) 02/14/24 04:14
Total Bilirubin 0.4 mg/dl (0.2-1.3) 02/14/24 04:14
AST 35 U/L (17-59) 02/14/24 04:14
ALT 15 U/L (0-50) 02/14/24 04:14
Alkaline Phosphatase 55 U/L (38-126) 02/14/24 04:14
Hepatitis C Antibody Reactive (Negative) 02/12/24 14:47
Diagnostic Image Results:
Prior GI Procedures:
EGD:
Colonoscopy:
Assessment / Plan
-
68-year-old male from [place] with past medical history of A-fib on Eliquis, heart failure, BPH, hypertension, dyslipidemia, coronary artery disease s/p PCI admitted with generalized malaise and shortness of breath and noted to have positive
influenza. Lab work in ED showing Macrocytic anemia with hemoglobin of 6.6/MCV 107.1 WBC 3.2/platelets 131. Serum creatinine 1.4/BUN 24. Liver test were normal
Ferritin 209/iron 45/TIBC 280/percentage saturation 15/B12 355/folate 20
-- Shortness of breath/COPD/influenza A
-- Macrocytic anemia/ hx of ETOH abuse . No baseline hb to compare. Iron studies mixed picture. B12/ folate normal. Patient denies any overt GI bleeding. No prior EGD or colonoscopy.
-- Afib with RVR / CAD s/p PCI
plan
Status post 1 unit PRBC. Repeat CBC 8.6. Patient currently being treated for influenza
I had a long discussion with the patient about benefits and risk of endoscopic evaluation for anemia including EGD/colonoscopy ( after recovering from influenza) . No prior EGD or colonoscopy. Emphasized the importance of having EGD/colonoscopy.
Discussed about possibility of missing GI related neoplasm ( including colon malignancy ) if not performed. Patient verbalized understanding. patient is from [place] and is planning to return back tomorrow. Patient would like to have
EGD/colonoscopy in [place] after recovering from current flu.
Continue further care as per medical team
GI will sign off. Please call us back if any questions
Total Time Spent with Patient (in minutes): 55
-
-
Thank you for consultation and allowing me to participate in the patient's care. Please call the software solutions architect GI physician during the after hours with any questions or concerns.
--- NOTE | 2024-02-14 18:39 | PTCARENOTE ---
Pt quite anxious about losing flight back to [place]- TT to and plan explained to pt and forwarded to Dr. More. Plan for discharge tomorrow. Pt updated and now less anxious. Again discussed infection prevention mask wearing / hand washing
in public and airlines.
[2024-02-14] MEDS: PROTONIX IV 40 MG IV (19:57)
[2024-02-14] MEDS: NSS (PRESERVATIVE FREE) 10 ML IV (19:58)
--- NOTE | 2024-02-14 20:00 | PTCARENOTE ---
Pt received from previous RN. at bedside. pt AAOx3. Chatting with staff. Does converse about being d/c'd. Pt remains afib on monitor. HR 75-80's while resting. Sat 95% RA. pt using urinal to void. Call light in reach. Pt denies further needs at
this time.
[2024-02-15] VITALS (7 sets, daily range): BP systolic 92–114; BP diastolic 58–85; BMI 32.9
[2024-02-15 05:06] LABS: Hematocrit 27.6 % (39.0-52.0); Hemoglobin 8.4 g/dL (13.0-18.0); Mean Corp Hgb Conc. 30.4 g/dL (33.0-37.0); Mean Corpuscular Hgb 32.3 pg (27.0-31.0); Mean Corpuscular Volume 106.2 fL (80.0-94.0); Platelet Count 158 10^3/uL (130-400); Red Cell Dist. Width 18.1 % (11.5-14.5); White Blood Cell Count 3.3 10^3/uL (4.8-10.8)
--- NOTE | 2024-02-15 07:54 | PTCARENOTE ---
late entry; This RN was providing Pt care and education r/t medications being administered and care interventions this RN was implementing. Pts also being present in the room at the time of care. Pt and cont to ask questions r/t current
plan of care, medication given, and interventions. This RN answered said questions to the best of her ability within her scope. Pt stated his wanted to record given information. This RN replied stating we ask that we are not recorded without
our consent. RN informed Pt they can write information down, or that this RN is happy to speak to whoever pt gives consent to share his medical information with. a few moments later while walking around the room this RN found pts cell phone to
be placed on the bedside table actively recording. RN exited room. informed rn charge. clinic charge nurse informed pt and on the hospital and [place] states policy/ law regarding recording of healthcare staff. dayshift nursing supervisor filtration made aware.
[2024-02-15] MEDS: ELIQUIS 5 MG PO (09:20)
[2024-02-15] MEDS: PROTONIX IV 40 MG IV (09:20)
[2024-02-15] MEDS: ENTRESTO 49 MG/51 MG 1 TAB PO (09:20)
[2024-02-15] MEDS: FARXIGA 10 MG PO (09:20)
[2024-02-15] MEDS: LIPITOR 80 MG PO (09:20)
[2024-02-15] MEDS: VIBRAMYCIN 100 MG PO (09:20)
[2024-02-15] MEDS: ZETIA 10 MG PO (09:20)
[2024-02-15] MEDS: NSS (PRESERVATIVE FREE) 10 ML IV (09:20)
[2024-02-15] MEDS: TOPROL XL 75 MG PO (09:21)
[2024-02-15] MEDS: PROSCAR 5 MG PO (09:21)
[2024-02-15] MEDS: ALDACTONE 25 MG PO (09:21)
[2024-02-15] MEDS: DELTASONE 40 MG PO (09:21)
[2024-02-15] MEDS: THERAGRAN 1 TABLET PO (09:21)
[2024-02-15] MEDS: TAMIFLU 75 MG PO (09:21)
[2024-02-15] MEDS: PLAVIX 75 MG PO (09:21)
--- NOTE | 2024-02-15 11:03 | W.PN.HOSP.TC ---
Today's Communication/Plan
-
dc
Assessment / Plan
Assessment / Plan
68yo M visiting from [place] with PMHx of HFrEF, Afib on Elqiuis, BPH, HTN, HLD, CAD s/p PCI, smoker came with 5 days of worsening malaise and SOB, found positive Influenza type A with significant wheezing in ED. [place] better after Duoneb. ALso
found with anemia and HONORIO, not previously known to the patient and Afib with RVR. XR with no pneumonia. Procalcitonin neg - no concern for bacterial component. Developed worsening PALLAVI - GI for assessment for endoscopy, however with absent overt
bleeding decision made by patient to follow up in his hometown upon return to [place]. He was recommended to follow with GI for EGD/COLONOSCOPY, hematology for PALLAVI and macrocytosis, [employer] for PFT with concern for COPD and repeat H&H with
PCP in 1 week and schedule TFT in 3-4 weeks. Patient verbalized understanding of the instructions. Medically stable for D/C
A/P:
#Acute hypoxic respiratory failure (tachypnea, dyspnea with hypoxia) 2/2 COPD exacerbation 2/2 Influenza A
Tamiflu
Taper steroids (cannot avoid with clinical COPD exacerbation)
bronchodilators
Wean off O2
Droplet precautions
#CAD, stable
#Afib with RVR
#Acute on chronic Presumed HFrEF (no records)
Cardizem drip wean off with increased BB
Trop WNL
Cardio consult
Telemetry
No signs of pulmonary congestion on XR, Lasix PRN
Echo: Normal biventricular size and systolic function without regional wall motion
abnormality. LVEF 55-60%. Hypokinesis of the basal to mid inferior and inferolateral drew.
Mild to moderate mitral regurgitation
#leukopenia
most likely 2/2 viral disease
follow CBC
#Macrocytic anemia with PALLAVI
PPI
no overt signs of bleeding
combined PALLAVI and alcohol BM suppression
follow serial Hgb (consent signed)
check FOBT
Gastroenterology consult
stop alcohol
Iron upon d/c
#BPH
#Essential HTN
#HLD
cont home meds
watch for retention
#HONORIO vs CKD
patient does no know Cr baseline
follow BMP
#Subclinical hyperthyroidism
repeat TSH in 2-4 weeks with PCP
#[place]
#Nicotine dependency
#Alcohol abuse
last drink and smoke 5 days ago
COunseled on cessation
#HUGH
with nocturnal hypoxia
previously recommended for CPAP after sleep study - he did not use it. Advised to repeat and use CPAP
DVT ppx hep drip
Full code
I have spent at least 58min reviewing chart, test results, communication with consultants, family and direct patient care
Anticipated Discharge: Today
Subjective/Interval History
-
Date of Service: February 15, 2024
Objective Data
-
Labs:
Laboratory Results
02/15/24
04:16
WBC 3.3 L
Hgb 8.4 L
Hct 27.6 L
Plt Count 158
Vital Signs:
Vital Signs
Temp Pulse Resp BP Pulse Ox
97.3 F 80 14 103/85 97
02/15/24 07:30 02/15/24 10:00 02/15/24 10:00 02/15/24 09:26 02/15/24 10:00
I&O
02/14/24 02/15/24 02/16/24
06:59 06:59 06:59
Intake Total 820 / 820
Output Total 2175 / 2175 1850 / 1850
Balance -2175 / -2175 -1030 / -1030
Review of Systems
-
History Source: Patient
All other systems: Reviewed and negative
Physical Exam
-
General: No Apparent Distress
HEENT: Normocephalic
Respiratory: Clear to Auscultation
GI: Soft, Nontender and Nondistended
Neuro: Awake, Alert, Oriented and AO x 3
Psych: Calm
--- NOTE | 2024-02-15 11:15 | W.DCSUMMARY ---
Addendum entered and electronically signed by Jaylan More MD 02/15/24 14:18:
Toprol 75mg daily sent to the pharmacy on file
Original Note:
Discharge Summary
Discharge Data
Date of Admission: 02/12/24
Date of Discharge: 02/15/24
-
Pending Results: No
Hospital Course
68yo M visiting from [place] with PMHx of HFrEF, Afib on Elqiuis, BPH, HTN, HLD, CAD s/p PCI, smoker came with 5 days of worsening malaise and SOB, found positive Influenza type A with significant wheezing in ED. [place] better after Duoneb. ALso
found with anemia and HONORIO, not previously known to the patient and Afib with RVR. XR with no pneumonia. Procalcitonin neg - no concern for bacterial component. Developed worsening PALLAVI - GI for assessment for endoscopy, however with absent overt
bleeding decision made by patient to follow up in his hometown upon return to [place]. He was recommended to follow with GI for EGD/COLONOSCOPY, hematology for PALLAVI and macrocytosis, Car G[employer]er for PFT with concern for COPD and repeat H&H with
PCP in 1 week and schedule TFT in 3-4 weeks. Patient verbalized understanding of the instructions. Medically stable for D/C
I have spent at least 58min reviewing chart, test results, communication with consultants, family and direct patient care
Patient was managed for:
#Acute hypoxic respiratory failure (tachypnea, dyspnea with hypoxia) 2/2 COPD exacerbation 2/2 Influenza A
#CAD, stable
#Afib with RVR
#Acute on chronic Presumed HFrEF (no records)
#leukopenia
#Macrocytic anemia with PALLAVI
#BPH
#Essential HTN
#HLD
#HONORIO vs CKD
#Subclinical hyperthyroidism
#[place]
#Nicotine dependency
#Alcohol abuse
#HUGH
Discharge Plan
-
Patient Disposition: Home (Routine Discharge)
Discharge Diagnosis/Procedures: Influenza A, PALLAVI, COPD
Diet: Regular
Blood Work: Repeat HGB with PCP in 1 week, repeat TSH with PCP in 3-4 weeks
Activity Restrictions/Additional Instructions:
Please obtain referrals for GI for EGD/COLONOSCOPY, hematology for PALLAVI and macrocytosis, Car Groomer for PFT and sleep study - with your family doctor
Referrals:
UNKNOWN - PT DOES,NOT KNOW [Family Provider] -
Prescriptions:
New
polyethylene glycol 3350 17 gram Powder In Packet
17 g PO DAILYPRN PRN (Reason: constipation) Qty: 30 0RF
doxycycline hyclate 100 mg Capsule
100 mg PO Q12 Qty: 10 0RF
oseltamivir 75 mg Capsule
75 mg PO BID Qty: 5 0RF
ferrous sulfate 325 mg (65 mg iron) tablet
325 mg PO DAILY Qty: 30 0RF
Airsupra 90-80 mcg/actuation HFA aerosol inhaler
2 inh inhalation ONCE Qty: 10.7 0RF
Rx Instructions:
as a single dose; may repeat up to 6 doses per day (12 inhalations)
prednisone 10 mg Tablet
See Rx Instructions .ROUTE .COMPLEX Qty: 30 0RF
Rx Instructions:
Take By Mouth:
40 mg daily x3 days, 30 mg daily x3 days,
20 mg daily x3 days, 10 mg daily x3 days.
Continued
atorvastatin 80 mg Tablet
80 mg PO DAILY
metoprolol succinate 50 mg Tablet Extended Release 24 Hr
50 mg PO DAILY
therapeutic multivitamin Tablet
1 tab PO DAILY
clopidogrel 75 mg Tablet
75 mg PO DAILY
spironolactone 25 mg Tablet
25 mg PO DAILY
pantoprazole 40 mg Tablet,Delayed Release (Dr/Ec)
40 mg PO DAILY
finasteride 5 mg Tablet
5 mg PO DAILY
ezetimibe 10 mg Tablet
10 mg PO DAILY
Eliquis 5 mg Tablet
5 mg PO BID
dapagliflozin propanediol [Farxiga] 10 mg Tablet
10 mg PO DAILY
sacubitril-valsartan [Entresto] 49-51 mg Tablet
1 tab PO BID
Discharge Orders:
Discharge Patient (As Directed); Ordered 02/15/24
Ordered By: Jaylan More
Discharge Date and Time
Print Language: RWANDAN
[2024-02-15 11:35] LABS: % Basophils 0.3 % (0-2); % Immature Granulocytes 0.3 % (0-0.5); % Lymphocytes 33.8 % (20.5-51.1); % Monocytes 7.2 % (1.7-9.3); % Neutrophils 58.4 % (42.2-75.2); Absolute Lymphocytes 1.1 10^3/uL (1.2-3.4); Absolute Monocytes 0.2 10^3/uL (0.1-0.6)
--- NOTE | 2024-02-15 12:49 | CM ---
MD entered a discharge order.
Spoke with pt and he is ready for discharge.
He is staying locally.
Clarified with MD pt dc on inhaler not a Nebulizer.
PLAN Home with family
[2024-02-15] MEDS: FERRLECIT 110 MG IV (13:00)
--- NOTE | 2024-02-15 13:55 | W.PN.CD ---
Today's Communication / Plan
-
HRs controlled, Has resumed Eliquis
He knows to follow up [facility] manager perioperative and GI
He is being d/c today
Impression / Plan
-
IMPRESSION/PLAN: 69M with heart failure (type unknown), coronary artery disease (prior PCI's), paroxysmal atrial fibrillation (on apixaban), hypertension, dyslipidemia, and current tobacco abuse who presented to the emergency department the chief
complaint of shortness of breath -> AF with RVR and influenza A
Acute hypoxic respiratory failure, in the setting of COPD and influenza A
Atrial fibrillation with RVR
-cont metop 75 mg daily
-Oral Anticoagulation: Apixaban 5 mg twice daily on hold per primary resume once OK from bleeding perspective
-[id number]: score at least 4 (Heart failure, HTN, Vascular disease, age 65-74)
Heart failure, presumed HFrEF, chronic
-He is lying flat in the bed and is not tachypneic
-No edema
-GDMT as tolerated
-HKANH/ARB/ARNI: Sacubitril/valsartan
-Beta-kitty: Metoprolol succinate
-SGLT2: Farxiga
-MRA: Spironolactone
-Device: None present on CXR
-Trend daily weight, I/O, low sodium diet
New anemia
- agree with hold Eliquis
- per primary, resume once OK from bleeding perspective
Coronary artery disease
-Stable without chest pain
-He reports prior stenting, date and location unknown, on clopidogrel
Dyslipidemia, on atorvastatin and Zetia
HUGH, declined CPAP in the outpatient setting
Current smoker, cessation recommended
Physical Exam
Vital Signs/Labs
Vital Signs
Temp Pulse Resp BP Pulse Ox
97.7 F 80 14 103/85 97
02/15/24 11:20 02/15/24 10:00 02/15/24 10:00 02/15/24 09:26 02/15/24 10:00
02/14/24 02/15/24 02/16/24
06:59 06:59 06:59
Actual Weight 261 lb 9.6 oz 263 lb 0.183 oz
02/15/24 04:16
02/14/24 04:14
APTT Cancelled 02/13/24 18:00
Triglycerides 50 mg/dl (10-149) 02/13/24 03:10
LDL Cholesterol, Calc 54 mg/dl 02/13/24 03:10
VLDL Cholesterol, Calc 10 mg/dl (0-30) 02/13/24 03:10
HDL Cholesterol 30 mg/dl 02/13/24 03:10
Free T4 1.67 ng/dl (0.78-2.19) 02/12/24 21:34
02/12/24
14:47
Xle-T-Kjouvjfmigk Pept 2830
LAB Results
02/12/24 02/13/24 02/13/24
18:43 03:10 10:15
Troponin I 0.020 0.014 Cancelled
Physical Exam
Constitutional: No acute distress and Comfortable
EENT: Anicteric
Cardiovascular: Rhythm/rate is irregular
Respiratory: Respiratory effort normal
GI: Soft
Neuro/Psych: AO x 3
Data Reviewed
-
Date of Service: February 15, 2024
EKG: Tracing Personally Visualized and interpreted (af)
Labs: Labs Reviewed by me
--- NOTE | 2024-02-15 15:16 | PTCARENOTE ---
Pt for d/c. Med list and instructions reviewed at length with pt and . IV and monitor equipment removed. Belongings collected from room. D/c off unit via wheelchair.
== END 2024-02-15 15:26 | disposition home or self-care (01) | DRG 871 ==
LOC: IMU 19:27
PROVIDERS: Nurse Practitioner Gerontology; Physician Assistant; ADMITTING PHYSICIAN Internal Medicine; EMERGENCY PHYSICIAN Emergency Medicine; OTHER PHYSICIAN Internal Medicine Cardiovascular Disease; OTHER PHYSICIAN Internal Medicine Gastroenterology
PROC: 30233N1 Transfusion of Nonautologous Red Blood Cells into Peripheral Vein, Percutaneous Approach (ICD-10-PCS; 2024-02-14)
DX: A41.9 Sepsis, unspecified organism (principal); J96.01 Acute respiratory failure with hypoxia; J44.1 Chronic obstructive pulmonary disease with (acute) exacerbation; N17.9 Acute kidney failure, unspecified; J10.1 Influenza due to other identified influenza virus with other respiratory manifestations; I25.10 Atherosclerotic heart disease of native coronary artery without angina pectoris; D72.819 Decreased white blood cell count, unspecified; D53.9 Nutritional anemia, unspecified; N40.0 Benign prostatic hyperplasia without lower urinary tract symptoms; I11.0 Hypertensive heart disease with heart failure; I50.9 Heart failure, unspecified; G47.33 Obstructive sleep apnea (adult) (pediatric); F17.200 Nicotine dependence, unspecified, uncomplicated; E05.90 Thyrotoxicosis, unspecified without thyrotoxic crisis or storm; I48.0 Paroxysmal atrial fibrillation; E78.00 Pure hypercholesterolemia, unspecified; Z79.01 Long term (current) use of anticoagulants; Z79.02 Long term (current) use of antithrombotics/antiplatelets; Z79.899 Other long term (current) drug therapy; E11.9 Type 2 diabetes mellitus without complications; K21.9 Gastro-esophageal reflux disease without esophagitis; Z79.84 Long term (current) use of oral hypoglycemic drugs; K59.00 Constipation, unspecified; Z95.5 Presence of coronary angioplasty implant and graft; Z11.52 Encounter for screening for COVID-19
CPT/HCPCS: 71046; 80053; 80061; 82248; 82607; 82728; 82746; 83036; 83540; 83550; 83615; 83880; 84145; 84439; 84443; 84484; 85014; 85018; 85025; 85027; 85045; 85730; 86803; 86850; 86900; 86901; 86920; 87502; 87811; 93005; 93306; 94640; 96374; 99285; J2916; P9058